=== PATIENT | female | born 1935 | race Caucasian/White ===

== ENCOUNTER 2017-01-14 07:31 | Emergency (ER) | payer MEDICARE, BC ==
--- NOTE | 2017-01-14 08:40 | Emergency Department Record ---
History of Present Illness - General Chief Complaint: Fall Injury Stated Complaint: FALL/HIP PAIN Time Seen by Provider: 01/14/17 07:49 Mode of Arrival: EMS - History of Present Illness Initial Comments: fall at home and she has dementia and EMS called and she was transported for evaluation of right hip pain. MD Complaint: Fall Onset/Timin -: Minutes(s) Fall From: Standing When Fall Occurred: Just prior to arrival Fall Witnessed: No Place Fall Occurred: Home Loss of Consciousness: None Prolonged Down Time?: No Location: Pelvis - [place] Coma Scale Eye Response: (4) Open spontaneously Motor Response: (5) Localizes to pain Verbal Response: (4) Confused conversation [place] Total: 13 - Related Data Home Medications Medication Instructions Recorded Confirmed Last Taken Calcium Citrate/Vitamin D3 1 each PO DAILY 04/24/15 01/14/17 01/13/17 [Calcium Citrate - Vit D Tablet] Multivit-Min/FA/Lycopene/Lut 1 each PO DAILY 04/24/15 01/14/17 01/13/17 [Centrum Silver Tablet] [place]-3/Dha/Epa/Fish Oil [Fish Oil 300 mg PO TID 04/24/15 01/14/17 01/13/17 Dr 500 mg Softgel] Omeprazole [Prilosec] 20 mg PO DAILY 04/24/15 01/14/17 01/13/17 Sotalol HCl [Sotalol] 80 mg PO BID 04/24/15 01/14/17 01/13/17 Valsartan/Hydrochlorothiazide 80 mg PO DAILY 04/13/16 01/14/17 01/13/17 [Valsartan-Hctz 160-25 mg Tab] Previous Rx's Medication Instructions Recorded Levothyroxine Sodium [Synthroid] 100 mcg PO DAILYTHY #30 tablet 04/26/15 Allergies Allergy/AdvReac Type Severity Reaction Status Date / Time No Known Drug Allergies Allergy Verified 12/04/15 08:40 Travel Screening - Travel/Exposure Within Last 30 Days Have you traveled within the last 30 days?: No - Travel/Exposure Within Last Year Have you traveled outside the [place] in the last year?: No - Additonal Travel Details Have you been exposed to anyone with a communicable illness?: No - Travel Symptoms Symptom Screening: None Review of Systems Reviewed: No additional complaints except as noted below Constitutional: Reports: As per HPI. Denies: Chills, Fever, Malaise, Night sweats, Weakness, Weight change Eyes: Reports: As per HPI. Denies: Eye discharge, Eye pain, Photophobia, Vision change ENT: Reports: As per HPI. Denies: Congestion, Dental pain, Ear pain, Epistaxis , Hearing loss, Throat pain Respiratory: Reports: As per HPI. Denies: Cough, Dyspnea, Hemoptysis, Stridor, Wheezes Cardiovascular: Reports: As per HPI. Denies: Arrhythmia, Chest pain, Dyspnea on exertion, Edema, Murmurs, Orthopnea, Palpitations, Paroxysmal nocturnal dyspnea, Rheumatic Fever, Syncope Endocrine: Reports: As per HPI. Denies: Fatigue, Heat or cold intolerance, Polydipsia, Polyuria Gastrointestinal: Reports: As per HPI. Denies: Abdominal pain, Constipation, Diarrhea, Hematemesis, Hematochezia, Melena, Nausea, Vomiting Genitourinary: Reports: As per HPI. Denies: Abnormal menses, Discharge, Dyspareunia, Dysuria, Frequency, Hematuria, Incontinence, Retention, Urgency Musculoskeletal: Reports: As per HPI, Other. Denies: Arthralgia, Back pain, Gout, Joint swelling, Myalgia, Neck pain Skin: Reports: As per HPI. Denies: Bruising, Change in color, Change in hair/ nails, Lesions, Pruritus, Rash Neurological: Reports: As per HPI. Denies: Abnormal gait, Confusion, Headache, Numbness, Paresthesias, Seizure, Tingling, Tremors, Vertigo, Weakness Psychiatric: Reports: As per HPI. Denies: Anxiety, Auditory hallucinations, Depression, Homicidal thoughts, Suicidal thoughts, Visual hallucinations Hematological/Lymphatic: Reports: As per HPI. 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) - NEURO Hx Neuro Disorders: Yes Hx Dementia: Yes Hx Dizziness: Yes - GI Hx GI Disorders: No - Hx Genitourinary Disorders: No - ENDOCRINE Hx Endocrine Disorders: Yes Hx Thyroid Disease: Yes (hypothyroid) - MUSCULOSKELETAL Hx Musculoskeletal Disorders: Yes Hx Arthritis: Yes (Generalized) - PSYCH Hx Psych Problems: Yes Hx Anxiety: Yes Hx Depression: Yes - HEMATOLOGY/ONCOLOGY Hx Hematology/Oncology Disorders: Yes Hx Blood Transfusions: Yes Hx Blood Transfusion Reaction: No Family Medical History Any Significant Family History?: No Hx Diabetes: Father Hx Heart Disease: Father Hx Liver Disease: Mother Physical Exam - General General Appearance: Alert, Oriented x3, Cooperative, No acute distress - Head Head exam: Normal inspection - Eye Eye exam: Normal appearance, PERRL Pupils: Normal accommodation - ENT ENT exam: Normal exam, Mucous membranes moist, Normal external ear exam, Normal orophraynx, TM's normal bilaterally Ear exam: Normal external inspection. negative: External canal tenderness Nasal Exam: Normal inspection. negative: Discharge, Sinus tenderness Mouth exam: Normal external inspection, Tongue normal Teeth exam: Normal inspection. negative: Dental caries Throat exam: Normal inspection. negative: Tonsillar erythema, Tonsillar exudate - Neck Neck exam: Normal inspection, Full ROM. negative: Tenderness - Respiratory Respiratory exam: Normal lung sounds bilaterally. negative: Respiratory distress - Cardiovascular Cardiovascular Exam: Regular rate, Normal rhythm, Normal heart sounds - GI/Abdominal GI/Abdominal exam: Soft, Normal bowel sounds. negative: Tenderness - Rectal Rectal exam: Deferred - exam: Deferred - Extremities Extremities exam: Normal inspection, Full ROM, Normal capillary refill, Tenderness (right hip) - Back Back exam: Reports: Normal inspection, Full ROM. Denies: Muscle spasm, Rash noted, Tenderness - Neurological Neurological exam: Alert, Normal gait, Oriented X3, Reflexes normal - Psychiatric Psychiatric exam: Normal affect, Normal mood - Skin Skin exam: Dry, Intact, Normal color, Warm Course Vital Signs 01/14/17 07:32 Temperature 98.5 F Pulse Rate 63 Respiratory 16 Rate Blood Pressure 155/73 Pulse Ox 99 Medical Decision Making - Data Complexity MDM Data: Labs Ordered and/or Reviewed, X-Ray Ordered and/or Reviewed (neg hip for fractures) - Lab Data Result diagrams: 01/14/17 07:49 01/14/17 07:49 Disposition Clinical Impression: Contusion Qualifiers: Encounter type: initial encounter Contusion area: hip Laterality: right Qualified Code(s): S70.01XA - Contusion of right hip, initial encounter Disposition: Home, Self-Care Condition: (1) Good Instructions: Contusion in Adults (ED) Additional Instructions: follow up with family Dr. in 4-7 days tylenol for pain Forms: Patient Portal Access Time of Disposition: 08:53
[2017-01-14 08:41] LABS: BASO % 0.3 % (0-6); EOS % 3.7 % (0-6); GRAN % 76.9 % (47-80); HEMATOCRIT 41.3 % (35.0-47.0); HEMOGLOBIN 14.9 gm/dl (11.6-16.0); LYMPH % 13.8 % (16-45); MEAN CELL VOLUME 91.8 fl (81-97); MEAN CORPUSCULAR HEMOGLOBIN 33.1 pg (27-33); MEAN CORPUSCULAR HGB CONC 36.1 g/dl (32-36); MEAN PLATELET VOLUME 9.3 fl (7.4-10.4); MONO % 5.3 % (0-9); PLATELET COUNT 252 K/uL (130-400); RED CELL DISTRIBUTION WIDTH 11.9 % (11.5-14.5); WHITE BLOOD COUNT W/O DIFF 7.7 K/uL (4.2-12.2)
[2017-01-14 08:53] LABS: BLOOD UREA NITROGEN 11 mg/dL (7-17); CREATININE 0.6 mg/dL (0.52-1.04); EST GLOMERULAR FILTRATION RATE > 60 ml/min; GLUCOSE,RANDOM 97 mg/dL (70-110)
--- NOTE | 2017-01-16 13:11 | RADIOLOGY REPORT ---
DATE: 01/14/2017. EXAM: AP PORTABLE VIEW OF THE CHEST. HISTORY: The patient is status post fall. TECHNIQUE: Single AP portable view of the chest was provided along with a comparison study dated 04/23/2015. FINDINGS: The cardiac silhouette is within normal limits for size and contour. Post-sternotomy changes are identified. Tortuosity of the thoracic aorta is noted. Significant calcification of the mitral valve is again noted. Pulmonary vasculature prominence is noted. No focal consolidation, pleural effusion, or pneumothorax is noted. IMPRESSION: NO RADIOGRAPHIC EVIDENCE OF AN ACUTE INTRATHORACIC PROCESS. CHRONIC INTERSTITIAL CHANGES ARE IDENTIFIED. JOB NUMBER: [id number] MTDD
--- NOTE | 2017-01-16 13:17 | RADIOLOGY REPORT ---
DATE: 01/14/2017. EXAM: AP VIEW OF THE PELVIS AND TWO VIEWS OF THE RIGHT HIP. HISTORY: The patient is status post fall. TECHNIQUE: AP view of the pelvis and two views of the right hip were provided along with a comparison study dated 04/13/2016. 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 Alignment of the right hip arthroplasty is anatomic. No marco-implant fractures are identified. No marco-hardware lucency is noted to suggest loosening or infection. 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 The visualized soft tissues of the pelvis are unremarkable. IMPRESSION: STABLE RADIOGRAPHIC APPEARANCE OF THE BILATERAL TOTAL HIP ARTHROPLASTIES WITH RESPECT TO THE PRIOR EXAMINATION. JOB NUMBER: [id number] [facility]
== END 2017-01-14 09:30 | disposition home or self-care (01) ==
LOC: ER 07:31
DX: S70.01XA Contusion of right hip, initial encounter (principal); W01.0XXA Fall on same level from slipping, tripping and stumbling without subsequent striking against object, initial encounter; I10 Essential (primary) hypertension; E03.9 Hypothyroidism, unspecified; F03.90 Unspecified dementia, unspecified severity, without behavioral disturbance, psychotic disturbance, mood disturbance, and anxiety; Y92.009 Unspecified place in unspecified non-institutional (private) residence as the place of occurrence of the external cause
CPT/HCPCS: 71010; 80048; 85025; 99283; 99284

== ENCOUNTER 2017-01-17 15:11 | Emergency (ER) | payer MEDICARE, BC ==
--- NOTE | 2017-01-17 15:31 | Emergency Department Record ---
History of Present Illness - General Chief complaint: Female Urogenital Problem Stated complaint: UTI ? Time Seen by Provider: 01/17/17 15:30 Source: Family Mode of Arrival: Wheelchair Limitations: No limitations - History of Present Illness Initial comments: The patient is here for a urine test. She lives at [facility] and per the staff has had dysuria today with cloudy urine. The patient has dementia and is getting rehab there. The hx is obtained from her who states the patient has had no reported AP, vomiting, or fever. She did have a recent fall with residual hip pain. MD Complaint: Dysuria Onset/Timin -: Days(s) Severity: Mild Severity scale (1-10): 2 Quality: Aching Consistency: Intermittent Improves with: None Worsens with: None Patient : No Associated Symptoms: Other - Related Data Sexually active: No Home Medications Medication Instructions Recorded Confirmed Last Taken Calcium Citrate/Vitamin D3 1 each PO DAILY 04/24/15 01/17/17 01/13/17 [Calcium Citrate - Vit D Tablet] Multivit-Min/FA/Lycopene/Lut 1 each PO DAILY 04/24/15 01/17/17 01/13/17 [Centrum Silver Tablet] [place]-3/Dha/Epa/Fish Oil [Fish Oil 300 mg PO TID 04/24/15 01/17/17 01/13/17 Dr 500 mg Softgel] Omeprazole [Prilosec] 20 mg PO DAILY 04/24/15 01/17/17 01/17/17 Sotalol HCl [Sotalol] 80 mg PO BID 04/24/15 01/17/17 01/17/17 Valsartan/Hydrochlorothiazide 80 mg PO DAILY 04/13/16 01/17/17 01/17/17 [Valsartan-Hctz 160-25 mg Tab] Citalopram Hydrobromide 20 mg PO DAILY 01/17/17 01/17/17 01/17/17 [Citalopram HBr] Previous Rx's Medication Instructions Recorded Levothyroxine Sodium [Synthroid] 100 mcg PO DAILYTHY #30 tablet 04/26/15 Nitrofurantoin [place] [Macrobid] 100 mg PO BID #14 capsule 01/17/17 Allergies Allergy/AdvReac Type Severity Reaction Status Date / Time No Known Drug Allergies Allergy Verified 01/17/17 15:30 Travel Screening - Travel/Exposure Within Last 30 Days Have you traveled within the last 30 days?: No Review of Systems Constitutional: Denies: Chills, Fever, Malaise Eyes: Denies: Eye discharge ENT: Denies: Congestion Respiratory: Denies: Cough, Dyspnea Past Medical History - SOCIAL HISTORY Smoking Status: Never smoker Alcohol Use: None Drug Use: None - RESPIRATORY Hx Respiratory Disorders: No - CARDIOVASCULAR Hx Cardio Disorders: Yes Hx Hypertension: Yes 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) - NEURO Hx Neuro Disorders: Yes Hx Dementia: Yes Hx Dizziness: Yes - GI Hx GI Disorders: No - Hx Genitourinary Disorders: No - ENDOCRINE Hx Endocrine Disorders: Yes Hx Thyroid Disease: Yes (hypothyroid) - MUSCULOSKELETAL Hx Musculoskeletal Disorders: Yes Hx Arthritis: Yes (Generalized) - PSYCH Hx Psych Problems: Yes Hx Anxiety: Yes Hx Depression: Yes - HEMATOLOGY/ONCOLOGY Hx Hematology/Oncology Disorders: Yes Hx Blood Transfusions: Yes Hx Blood Transfusion Reaction: No Family Medical History Any Significant Family History?: Yes Hx Diabetes: Father Hx Heart Disease: Father Hx Liver Disease: Mother Physical Exam - General General Appearance: Alert, No acute distress - Head Head exam: Atraumatic, Normocephalic, Normal inspection - Eye Eye exam: Normal appearance, PERRL - Neck Neck exam: Normal inspection, Full ROM. negative: Tenderness - Respiratory Respiratory exam: Normal lung sounds bilaterally. negative: Respiratory distress - Cardiovascular Cardiovascular Exam: Regular rate, Normal rhythm, Normal heart sounds - GI/Abdominal GI/Abdominal exam: Soft, Normal bowel sounds. negative: Distended, Hypoactive bowel sounds, Tenderness - Extremities Extremities exam: Normal inspection Course Vital Signs 01/17/17 15:27 Temperature 97.6 F Pulse Rate 74 Respiratory 24 Rate Blood Pressure 148/75 Pulse Ox 97 - Reevaluation(s) Reevaluation #1: I did explain to the that it does appear the patient has a UTI. We will place her on Macrobid and have her F/U with the doctor at [facility] next week. 01/17/17 15:49 Disposition Disposition: Discharge Clinical Impression: Urinary Tract Infection Qualifiers: Urinary tract infection type: acute cystitis Hematuria presence: without hematuria Qualified Code(s): N30.00 - Acute cystitis without hematuria Disposition: Home, Self-Care Condition: (2) Stable Instructions: Urinary Tract Infection in Women (ED) Additional Instructions: Please give the Macrobid as directed. Please see your PCP at [facility] if not better in 3 days. Return to the ER if worse. Prescriptions: Nitrofurantoin [place] [Macrobid] 100 mg PO BID #14 capsule Forms: Patient Portal Access Time of Disposition: 15:51
[2017-01-17 15:35] LABS: URINE APPEARANCE CLEAR; URINE BILIRUBIN NEGATIVE (NEGATIVE); URINE BLOOD TRACE-I (NEGATIVE); URINE COLOR YELLOW; URINE GLUCOSE (UA) NEGATIVE (NEGATIVE); URINE KETONE NEGATIVE (NEGATIVE); URINE LEUKOCYTE ESTERASE NEGATIVE (NEGATIVE); URINE NITRITE NEGATIVE (NEGATIVE); URINE UROBILINOGEN 0.2 E.U./dL (0.20 - 1.00)
[2017-01-17 15:47] LABS: URINE BACTERIA 4+; URINE WBC 21 - 35 (0-2/hpf)
== END 2017-01-17 16:06 | disposition home or self-care (01) ==
LOC: ER 15:11
DX: N30.00 Acute cystitis without hematuria (principal)
CPT/HCPCS: 81001; 99282

== ENCOUNTER 2017-02-06 18:21 | Inpatient (IN) | payer MEDICARE, BC ==
--- NOTE | 2017-02-06 18:43 | Emergency Department Record ---
History of Present Illness - General Chief Complaint: Fall Injury Stated Complaint: FALL Time Seen by Provider: 02/06/17 18:36 Source: Patient, Family, EMS Mode of Arrival: Stretcher - History of Present Illness Initial Comments: Per patient's , the patient fell prior to arrival while trying to ambulate at home with her walker. She hit the side of a piece of furniture with her right side of her head and fell to the ground. She did not lose consciousness . She has dementia and atrial fibrillation. Four weeks ago she fell and injured her hip. She went to rehab at a local facility and then returned home 02-03-17, with her doing full care at home for her. He states that this arrangement is not working for him and their PCP Dr. Gonsalez is working on arranging half-way placement for her. He states her mental state is currently at baseline for her": alert, doesn't answer questions or speak. 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 Place Fall Occurred: Home Loss of Consciousness: None Associated Symptoms: Other - [place] Coma Scale Eye Response: (4) Open spontaneously Motor Response: (6) Obeys commands Verbal Response: (4) Confused conversation [place] Total: 14 - Related Data Home Medications Medication Instructions Recorded Confirmed Last Taken Calcium Citrate/Vitamin D3 1 each PO DAILY 04/24/15 02/06/17 02/06/17 [Calcium Citrate - Vit D Tablet] Multivit-Min/FA/Lycopene/Lut 1 each PO DAILY 04/24/15 02/06/17 02/06/17 [Centrum Silver Tablet] [place]-3/Dha/Epa/Fish Oil [Fish Oil 300 mg PO TID 04/24/15 02/06/17 02/06/17 Dr 500 mg Softgel] Omeprazole [Prilosec] 20 mg PO DAILY 04/24/15 02/06/17 02/06/17 Sotalol HCl [Sotalol] 80 mg PO BID 04/24/15 02/06/17 02/06/17 Valsartan/Hydrochlorothiazide 80 mg PO DAILY 04/13/16 02/06/17 02/06/17 [Valsartan-Hctz 160-25 mg Tab] Citalopram Hydrobromide 20 mg PO DAILY 01/17/17 02/06/17 02/06/17 [Citalopram HBr] Previous Rx's Medication Instructions Recorded Levothyroxine Sodium [Synthroid] 100 mcg PO DAILYTHY #30 tablet 04/26/15 Allergies Allergy/AdvReac Type Severity Reaction Status Date / Time No Known Drug Allergies Allergy Verified 01/17/17 15:30 Travel Screening - Travel/Exposure Within Last 30 Days Have you traveled within the last 30 days?: No - Travel/Exposure Within Last Year Have you traveled outside the [place] in the last year?: No - Additonal Travel Details Have you been exposed to anyone with a communicable illness?: No - Travel Symptoms Symptom Screening: None Review of Systems Reviewed: No additional complaints except as noted below Constitutional: Reports: As per HPI. Denies: Chills, Fever, Malaise, Night sweats, Weakness, Weight change Eyes: Reports: As per HPI. Denies: Eye discharge, Eye pain, Photophobia, Vision change ENT: Reports: As per HPI. Denies: Congestion, Dental pain, Ear pain, Epistaxis , Hearing loss, Throat pain Respiratory: Reports: As per HPI. Denies: Cough, Dyspnea, Hemoptysis, Stridor, Wheezes Cardiovascular: Reports: As per HPI. Denies: Arrhythmia, Chest pain, Dyspnea on exertion, Edema, Murmurs, Orthopnea, Palpitations, Paroxysmal nocturnal dyspnea, Rheumatic Fever, Syncope Endocrine: Reports: As per HPI. Denies: Fatigue, Heat or cold intolerance, Polydipsia, Polyuria Gastrointestinal: Reports: As per HPI. Denies: Abdominal pain, Constipation, Diarrhea, Hematemesis, Hematochezia, Melena, Nausea, Vomiting Genitourinary: Reports: As per HPI. Denies: Abnormal menses, Discharge, Dyspareunia, Dysuria, Frequency, Hematuria, Incontinence, Retention, Urgency Musculoskeletal: Reports: As per HPI. Denies: Arthralgia, Back pain, Gout, Joint swelling, Myalgia, Neck pain Skin: Reports: As per HPI. Denies: Bruising, Change in color, Change in hair/ nails, Lesions, Pruritus, Rash Neurological: Reports: As per HPI. Denies: Abnormal gait, Confusion, Headache, Numbness, Paresthesias, Seizure, Tingling, Tremors, Vertigo, Weakness Psychiatric: Reports: As per HPI. Denies: Anxiety, Auditory hallucinations, Depression, Homicidal thoughts, Suicidal thoughts, Visual hallucinations Hematological/Lymphatic: Reports: As per HPI. 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) - NEURO Hx Neuro Disorders: Yes Hx Dementia: Yes Hx Dizziness: Yes - GI Hx GI Disorders: No - Hx Genitourinary Disorders: No - ENDOCRINE Hx Endocrine Disorders: Yes Hx Thyroid Disease: Yes (hypothyroid) - MUSCULOSKELETAL Hx Musculoskeletal Disorders: Yes Hx Arthritis: Yes (Generalized) - PSYCH Hx Psych Problems: Yes Hx Anxiety: Yes Hx Depression: Yes - HEMATOLOGY/ONCOLOGY Hx Hematology/Oncology Disorders: Yes Hx Blood Transfusions: Yes Hx Blood Transfusion Reaction: No Family Medical History Any Significant Family History?: No Hx Diabetes: Father Hx Heart Disease: Father Hx Liver Disease: Mother Physical Exam - General General Appearance: Alert, No acute distress Limitations: Altered mental status (chronically demented) - Head Head exam: Normal inspection - Eye Eye exam: Normal appearance, PERRL Pupils: Normal accommodation - ENT ENT exam: Normal exam, Mucous membranes moist, Normal external ear exam, Normal orophraynx, TM's normal bilaterally Ear exam: Normal external inspection. negative: External canal tenderness Nasal Exam: Normal inspection. negative: Discharge, Sinus tenderness Mouth exam: Normal external inspection, Tongue normal Teeth exam: Normal inspection. negative: Dental caries Throat exam: Normal inspection. negative: Tonsillar erythema, Tonsillar exudate - Neck Neck exam: Normal inspection, Full ROM, Other (arrived with C collar in place). negative: Tenderness - Respiratory Respiratory exam: Normal lung sounds bilaterally. negative: Respiratory distress - Cardiovascular Cardiovascular Exam: Regular rate, Normal rhythm, Normal heart sounds - GI/Abdominal GI/Abdominal exam: Soft, Normal bowel sounds. negative: Tenderness - Rectal Rectal exam: Deferred - exam: Deferred - Extremities Extremities exam: Normal inspection, Full ROM, Normal capillary refill. negative: Tenderness - Back Back exam: Reports: Normal inspection, Full ROM. Denies: Muscle spasm, Rash noted, Tenderness - Neurological Neurological exam: Alert, CN II-XII intact, Reflexes normal, Other (nonverbal) - Psychiatric Psychiatric exam: Normal affect, Normal mood - Skin Skin exam: Dry, Intact, Normal color, Warm Course Vital Signs 02/06/17 18:25 Temperature 98.1 F Pulse Rate 74 Respiratory 16 Rate Blood Pressure 108/66 Pulse Ox 96 - Reevaluation(s) Reevaluation #1: Paged Dr. Gonsalez three times with no response. Family wishes her admitted here. They state she soon has a bed waiting for her at [facility]. 02/06/17 22:02 Reevaluation #2: Patient continues to be cooperative and affectionate awaiting admission. Family at bedside. Orders in progress. 02/06/17 22:08 Medical Decision Making - Management Options MDM Management: Additional Work-up Planned (e.g. ADM/Transfer/OP Study) (Admit to Dr. Mari service) - Data Complexity MDM Data: Labs Ordered and/or Reviewed, X-Ray Ordered and/or Reviewed (Head and C spine noncontrast CTs: no acute abnormalities, chronic changes. Pelvis: bilaterahip replacements; right inferior pubic ramus fracture.), EKG Ordered and /or Reviewed - Lab Data Result diagrams: 02/06/17 18:57 02/06/17 18:57 - EKG Data -: EKG Interpreted by Me EKG: No Acute Changes, Unchanged From Previous (prior of 07-18-16) Disposition Disposition: Admit Clinical Impression: Fall as cause of accidental injury at home as place of occurrence, Hyponatremia , Electrolyte imbalance Inferior pubic ramus fracture Qualifiers: Encounter type: initial encounter Fracture type: closed Laterality: right Qualified Code(s): S32.591A - Other specified fracture of right pubis, initial encounter for closed fracture Dementia Qualifiers: Dementia type: unspecified type Dementia behavioral disturbance: without behavioral disturbance Qualified Code(s): F03.90 - Unspecified dementia without behavioral disturbance Disposition: Still a Patient at [facility] Decision to Admit: Admit from ER Decision to Admit Date: 02/06/17 Decision to Admit Time: 22:07 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
[2017-02-06 19:06] LABS: BASO % 0.3 % (0-6); EOS % 1.2 % (0-6); GRAN % 66.6 % (47-80); HEMATOCRIT 37.4 % (35.0-47.0); HEMOGLOBIN 13.6 gm/dl (11.6-16.0); MEAN CELL VOLUME 89.9 fl (81-97); MEAN CORPUSCULAR HEMOGLOBIN 32.7 pg (27-33); MEAN CORPUSCULAR HGB CONC 36.4 g/dl (32-36); MEAN PLATELET VOLUME 8.9 fl (7.4-10.4); MONO % 9.9 % (0-9); PLATELET COUNT 486 K/uL (130-400); RED BLOOD COUNT 4.16 M/uL (3.80-5.40); RED CELL DISTRIBUTION WIDTH 12.3 % (11.5-14.5); WHITE BLOOD COUNT W/O DIFF 9.2 K/uL (4.2-12.2)
[2017-02-06 19:21] LABS: AMMONIA < 8.7 umol/L (9-30)
[2017-02-06 19:22] LABS: INR 1.03; PARTIAL THROMBOPLASTIN TIME 24.6 SECONDS (24.5-39.1); PROTHROMBIN TIME (PATIENT) 11.6 SECONDS (9.5-12.1)
[2017-02-06 19:23] LABS: ALBUMIN 3.6 gm/dL (3.5-5.0); BILIRUBIN,DIRECT 0.9 mg/dL (0-0.3); BLOOD UREA NITROGEN 25 mg/dL (7-17); CREATININE 0.7 mg/dL (0.52-1.04); EST GLOMERULAR FILTRATION RATE > 60 ml/min; GLUCOSE,RANDOM 108 mg/dL (70-110); TOTAL PROTEIN 6.7 gm/dL (6.3-8.2)
[2017-02-06 19:24] LABS: ALKALINE PHOSPHATASE 161 U/L (38-126); ALT/SGPT 38 U/L (9-52); AST/SGOT 26 U/L (14-36)
[2017-02-06] MEDS ORDERED: POTASSIUM CHLORIDE 20 MEQ TABLET PO ONE (20:25)
[2017-02-06 20:54] LABS: URINE APPEARANCE CLEAR; URINE BILIRUBIN NEGATIVE (NEGATIVE); URINE BLOOD NEGATIVE (NEGATIVE); URINE COLOR YELLOW; URINE GLUCOSE (UA) NEGATIVE (NEGATIVE); URINE KETONE 15 mg/dL (NEGATIVE); URINE LEUKOCYTE ESTERASE NEGATIVE (NEGATIVE); URINE NITRITE NEGATIVE (NEGATIVE); URINE PROTEIN TRACE (NEGATIVE)
[2017-02-06 21:59] LABS: AMPHETAMINE SCREEN URINE NOT DETECTED; BARBITURATE SCREEN URINE NOT DETECTED; BENZODIAZEPINE SCREEN URINE NOT DETECTED; COCAINE SCREEN URINE NOT DETECTED; METHADONE SCREEN URINE NOT DETECTED; METHAMPHETAMINE SCREEN NOT DETECTED; OPIATE SCREEN URINE NOT DETECTED; OXYCODONE SCREEN URINE NOT DETECTED; PHENCYCLIDINE SCREEN URINE NOT DETECTED; PROPOXYPHENE SCREEN URINE NOT DETECTED; THC SCREEN URINE NOT DETECTED; TRICYCLIC ANTIDEPRESSANT SCRN NOT DETECTED
[2017-02-06] MEDS ORDERED: AL HYDROX/MAG HYDROX 30ML UD PO PRN (23:11)
[2017-02-06] MEDS ORDERED: ACETAMINOPHEN 500 MG TABLET PO PRN (23:11)
[2017-02-07] MEDS ORDERED: ZINC OXIDE 28.35 GM TUBE TOP PRN (06:52)
[2017-02-07] MEDS ORDERED: LEVOTHYROXINE SODIUM 100 MCG TABLET PO SCH (07:00)
--- NOTE | 2017-02-07 09:32 | History & Physical ---
History of Present Illness - Date of Service Date of Service for History & Physical: 02/07/17 - History of Present Illness Admitting Diagnosis: Fall; inferior ramus fracture; dementia; electrolyte imbalance; intermittent a. fib History of Present Illness: 81 y/o demented female with CC fall admitted for right inferior ramus fracture, hyponatremia. PMX includes: dementia, a-fib, HTN, hypothyroidism, arthritis PSH: septomyectomy History given by - Patient mental status is at baseline, she is alert but non-verbal. Prior to admit patient fell at home while trying to ambulate with walker. Hit the side of a piece of furniture with the right side of her head and fell. Denies any LOC. Believes she lost her balance. Four weeks ago she fell and injured her right hip, no fracture, and subsequently went to a local rehab center for therapy and respite and returned home 02/03/17. has been her primary care consultant. reports his current role as primary caregiver has been increasingly difficult to manage and has been working on arranging halfway care placement for her for 01/06 care. He reports her current mental state is at baseline for her. While in the ED VS: T 98.1, P 74, BP108/66, RR 16, SPO2 96% RA. WBC 9.2, Plt 486 , Na 128, K 3.1, alk phos 161, tox screen negative, EKG NSR, RBBB, LAFB, LVH. Cervical CT negative for acute fracture, hip and pelvis x-ray + right pubic ramus fx, head CT negative for acute process, CXR negative for acute process 02/07- observed ambulating from BR with walker, wincing and whimpering. Is non- verbal. at bedside. Per 's report she ambulates independently with walker at home with little assist, requires 24/7 assist with ADL and food prep/medication management due to cognitive impairment. Was diagnosed with dementia about 4 years ago. states she has been accepted as a patient at [facility] and was planning on admission to the facility on Thursday. PCP Dr. Gonsalez Travel Screening - Travel/Exposure Within Last 30 Days Have you traveled within the last 30 days?: No - Travel/Exposure Within Last Year Have you traveled outside the [place] in the last year?: No - Additonal Travel Details Have you been exposed to anyone with a communicable illness?: No - Travel Symptoms Symptom Screening: None Review of Systems Constitutional: Reports: As per HPI. Denies: Chills, Fever, Malaise, Night sweats, Weakness, Weight change Eyes: Reports: As per HPI. Denies: Eye discharge, Eye pain, Photophobia, Vision change ENT: Reports: As per HPI. Denies: Congestion, Dental pain, Ear pain, Epistaxis , Hearing loss, Throat pain Respiratory: Reports: As per HPI. Denies: Cough, Dyspnea, Hemoptysis, Stridor, Wheezes Cardiovascular: Reports: As per HPI. Denies: Arrhythmia, Chest pain, Dyspnea on exertion, Edema, Murmurs, Orthopnea, Palpitations, Paroxysmal nocturnal dyspnea, Rheumatic Fever, Syncope Endocrine: Reports: As per HPI. Denies: Fatigue, Heat or cold intolerance, Polydipsia, Polyuria Gastrointestinal: Reports: As per HPI. Denies: Abdominal pain, Constipation, Diarrhea, Hematemesis, Hematochezia, Melena, Nausea, Vomiting Genitourinary: Reports: As per HPI. Denies: Abnormal menses, Discharge, Dyspareunia, Dysuria, Frequency, Hematuria, Incontinence, Retention, Urgency Musculoskeletal: Reports: As per HPI. Denies: Arthralgia, Back pain, Gout, Joint swelling, Myalgia, Neck pain Skin: Reports: As per HPI. Denies: Bruising, Change in color, Change in hair/ nails, Lesions, Pruritus, Rash Neurological: Reports: As per HPI. Denies: Abnormal gait, Confusion, Headache, Numbness, Paresthesias, Seizure, Tingling, Tremors, Vertigo, Weakness Psychiatric: Reports: As per HPI. Denies: Anxiety, Auditory hallucinations, Depression, Homicidal thoughts, Suicidal thoughts, Visual hallucinations Hematological/Lymphatic: Reports: As per HPI. 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) - NEURO Hx Neuro Disorders: Yes Hx Dementia: Yes Hx Dizziness: Yes - GI Hx GI Disorders: No - Hx Genitourinary Disorders: No Comment:: incontinent of bowel and bladder - ENDOCRINE Hx Endocrine Disorders: Yes Hx Thyroid Disease: Yes (hypothyroid) - MUSCULOSKELETAL Hx Musculoskeletal Disorders: Yes Hx Arthritis: Yes (Generalized) - PSYCH Hx Psych Problems: Yes Hx Anxiety: Yes Hx Depression: Yes - HEMATOLOGY/ONCOLOGY Hx Hematology/Oncology Disorders: Yes Hx Blood Transfusions: Yes Hx Blood Transfusion Reaction: No Family Medical History Any Significant Family History?: No Hx Diabetes: Father Hx Heart Disease: Father Hx Liver Disease: Mother H&P Meds/Allergies - Allergies Allergies: Allergies Allergy/AdvReac Type Severity Reaction Status Date / Time No Known Drug Allergies Allergy Verified 01/17/17 15:30 - Home Medications Home Medications Medication Instructions Recorded Confirmed Last Taken Calcium Citrate/Vitamin D3 1 each PO DAILY 04/24/15 02/06/17 02/06/17 [Calcium Citrate - Vit D Tablet] Multivit-Min/FA/Lycopene/Lut 1 each PO DAILY 04/24/15 02/06/17 02/06/17 [Centrum Silver Tablet] [place]-3/Dha/Epa/Fish Oil [Fish Oil 300 mg PO TID 04/24/15 02/06/17 02/06/17 Dr 500 mg Softgel] Omeprazole [Prilosec] 20 mg PO DAILY 04/24/15 02/06/17 02/06/17 Sotalol HCl [Sotalol] 80 mg PO BID 04/24/15 02/06/17 02/06/17 Citalopram Hydrobromide 20 mg PO DAILY 01/17/17 02/06/17 02/06/17 [Citalopram HBr] Valsartan [Valsartan] 80 mg PO DAILY 02/07/17 02/07/17 Unknown Previous Rx's Medication Instructions Recorded Levothyroxine Sodium [Synthroid] 100 mcg PO DAILYTHY #30 tablet 04/26/15 - Active Medications Active Medications: Current Medications Acetaminophen (Tylenol 500mg Tab) 500 mg PO Q6H PRN PRN Reason: PAIN/TEMP Al Hydroxide/Mg Hydroxide (Maalox) 30 ml PO Q4H PRN PRN Reason: GI UPSET Citalopram Hydrobromide (Celexa) 20 mg PO DAILY ALL Levothyroxine Sodium (Synthroid) 100 mcg PO DAILYTHY ALL Last Admin: 02/07/17 06:37 Dose: 100 mcg Non-Formulary Medication (Calcium Citrate/Vitamin D3 [Calcium Citrate - Vit D Tablet]) 1 each PO DAILY ALL Non-Formulary Medication (Multivit-Min/Fa/Lycopene/Lut [Centrum Silver Tablet]) 1 each PO DAILY ALL Non-Formulary Medication ([place]-3/Dha/Epa/Fish Oil [Fish Oil Dr 500 Mg Softgel] ) 300 mg PO TID ALL Non-Formulary Medication (Omeprazole [Prilosec]) 20 mg PO DAILY ALL Non-Formulary Medication (Valsartan/Hydrochlorothiazide [Valsartan-Hctz 160-25 Mg Tab]) 80 mg PO DAILY ALL Sotalol HCl (Betapace) 80 mg PO BID ALL Zinc Oxide (Desitin) 28.35 gm TOP BID PRN PRN Reason: RASH Last Admin: 02/07/17 06:45 Dose: 28.35 gm Physical Exam - Vital Signs Vital Signs: Vital Signs - Last 24 Hrs Temp Pulse Resp BP BP Pulse Ox 02/07/17 08:03 98.2 F 73 18 101/54 96 02/07/17 07:56 20 02/07/17 00:04 97.7 F 66 20 108/66 97 - General General Appearance: Alert, No acute distress Limitations: Altered mental status (chronically demented) - Head Head exam: Normal inspection - Eye Eye exam: Normal appearance, PERRL Pupils: Normal accommodation - ENT ENT exam: Normal exam, Mucous membranes moist, Normal external ear exam, Normal orophraynx, TM's normal bilaterally Ear exam: Normal external inspection. negative: External canal tenderness Nasal Exam: Normal inspection. negative: Discharge, Sinus tenderness Mouth exam: Normal external inspection, Tongue normal Teeth exam: Normal inspection. negative: Dental caries Throat exam: Normal inspection. negative: Tonsillar erythema, Tonsillar exudate - Neck Neck exam: Normal inspection, Full ROM, Other (arrived with C collar in place). negative: Tenderness - Respiratory Respiratory exam: Normal lung sounds bilaterally. negative: Respiratory distress - Cardiovascular Cardiovascular Exam: Regular rate, Normal rhythm, Normal heart sounds, Systolic murmur Peripheral Pulses: 3+: Dorsalis Pedis (R), Dorsalis Pedis (L) - GI/Abdominal GI/Abdominal exam: Soft, Normal bowel sounds. negative: Tenderness - Rectal Rectal exam: Deferred - exam: Deferred - Extremities Extremities exam: Normal inspection (no leg length discrepency), Full ROM, Normal capillary refill, Other. negative: Tenderness - Back Back exam: Reports: Normal inspection, Full ROM. Denies: Muscle spasm, Rash noted, Tenderness - Neurological Neurological exam: Alert, CN II-XII intact, Reflexes normal, Other (nonverbal. Sensation grossly intact BLE) - Psychiatric Psychiatric exam: Normal affect, Normal mood - Skin Skin exam: Dry, Intact, Normal color, Warm Results - Labs Result Diagrams: 02/06/17 18:57 02/06/17 18:57 - Imaging and Cardiology CT scan - head Status: Report reviewed (No acute process) VTE H&P Assessment - Risk for VTE Risk for VTE: Yes Risk Level: Moderate Risk Assessment Date: 02/07/17 Risk Assessment Time: 12:00 VTE Orders Placed or Will Be Placed: Yes Plan - Inpatient Certification Inpatient Certification: Admit to inpatient care: Based on my medical assessment, after consideration of patient's risk factors (age, co-morbidities and patient presenting symptoms and acuity), I expect that this patient will remain in the hospital greater than or equal to two midnights and that the services needed warrant inpatient care because: Patient Risk Factors: [pubic ramus fracture, advanced age, dementia] Estimated length of stay: [72-96 hours] The patient may reasonably be expected to be discharged or transferred to a hospital within 96 hours after admission to [facility]. Services needed: [pain management, lab monitoring] Post hospital care (if known): [] I certify that my determination is in accordance with my understanding of Medicare requirements for reasonable and necessary inpatient services. 02/07/17 20:18 - Detailed Diagnosis and Plan (1) Inferior pubic ramus fracture Current Visit: Yes Status: Acute Qualifiers: Encounter type: initial encounter Fracture type: closed Laterality : right Qualified Code(s): S32.591A - Other specified fracture of right pubis, initial encounter for closed fracture Base Code: S32.599A - OTH FRACTURE OF UNSP PUBIS, INIT ENCNTR FOR CLOSED FRACTURE Comment: 02/07- admitted for right inferior pubic ramus fracture after fall at home. Fracture closed, non-displaced - reports any use of narcotic pain mediations "knocks her out" - pain control with Tylenol ES 2 tabs Q 8 hours - encourage ambulation - [facility] contacted today, will be transfering directly there at discharge (2) Electrolyte imbalance Current Visit: Yes Status: Acute Base Code: E87.8 - OTH DISORDERS OF ELECTROLYTE AND FLUID BALANCE, NEC Comment: 02/07- Hyponatremia noted on admission labs. Na 128. - initiate 1800ml/24 hour fluid restriction - CMP in the am (3) Adult hypothyroidism Current Visit: Yes Status: Acute Base Code: E03.9 - HYPOTHYROIDISM, UNSPECIFIED Comment: 02/07- Hx chronic hypothyroidism. TSH today 11.06 - increase synthroid to 125mcg QD, will need recheck in 6 weeks (4) DVT prophylaxis Current Visit: Yes Status: Acute Base Code: [id number] - Comment: 02/07- moderate risk DVT 2nd advanced age and pubic ramus fracture. Will encourage frequent ambulation. Anticoagulation not advised as she is a high fall risk. (5) Full code status Current Visit: Yes Status: Acute Base Code: Z78.9 - OTHER SPECIFIED HEALTH STATUS Comment: 02/07- will remain full code during this hospitalization
[2017-02-07] MEDS: PANTOPRAZOLE SODIUM 40 MG TABLET PO SCH (10:31)
[2017-02-07] MEDS: CITALOPRAM 20 MG TABLET PO SCH (10:31)
[2017-02-07] MEDS: MULTIVITAMINS/MINERALS TABLET PO SCH (10:31)
[2017-02-07] MEDS: CALCIUM CARB/VITAMIN D 500MG/200IU PO SCH (10:31)
[2017-02-07] MEDS: SOTALOL HCL 80 MG TABLET PO SCH ×2 (10:38→23:18)
[2017-02-07] MEDS: EPA PO SCH ×3 (10:39→23:23)
[2017-02-07] MEDS: DHA PO SCH ×3 (10:39→23:23)
[2017-02-07] MEDS: OMEGA PO SCH ×3 (10:39→23:23)
[2017-02-07] MEDS: FISH OIL PO SCH ×3 (10:39→23:23)
[2017-02-07] MEDS: VALSARTAN 80 MG TAB PO SCH (10:39)
[2017-02-07] MEDS: ACETAMINOPHEN 500 MG TABLET PO SCH ×2 (12:18→23:18)
[2017-02-08 06:30] LABS: ALB/GLOB RATIO 1.2 (1.1-1.8); ALBUMIN 3.5 gm/dL (3.5-5.0); ALKALINE PHOSPHATASE 125 U/L (38-126); ALT/SGPT 36 U/L (9-52); ANION GAP 5.8 (7-16); AST/SGOT 23 U/L (14-36); BILIRUBIN,TOTAL 0.98 mg/dL (0.2-1.3); BLOOD UREA NITROGEN 20 mg/dL (7-17); CARBON DIOXIDE 31.2 mmol/L (22-30); CREATININE 0.6 mg/dL (0.52-1.04); EST GLOMERULAR FILTRATION RATE > 60 ml/min; GLUCOSE,RANDOM 99 mg/dL (70-110); TOTAL PROTEIN 6.4 gm/dL (6.3-8.2)
[2017-02-08] MEDS: ACETAMINOPHEN 500 MG TABLET PO SCH ×3 (06:34→22:03)
[2017-02-08] MEDS: PANTOPRAZOLE SODIUM 40 MG TABLET PO SCH (06:35)
[2017-02-08] MEDS ORDERED: LEVOTHYROXINE SODIUM 100 MCG TABLET PO SCH (07:00)
[2017-02-08] MEDS: MULTIVITAMINS/MINERALS TABLET PO SCH (09:57)
[2017-02-08] MEDS: VALSARTAN 80 MG TAB PO SCH (09:57)
[2017-02-08] MEDS: CALCIUM CARB/VITAMIN D 500MG/200IU PO SCH (09:58)
[2017-02-08] MEDS: CITALOPRAM 20 MG TABLET PO SCH (09:58)
[2017-02-08] MEDS: SOTALOL HCL 80 MG TABLET PO SCH ×2 (09:58→22:04)
[2017-02-08] MEDS: OMEGA PO SCH (10:08)
[2017-02-08] MEDS: EPA PO SCH (10:08)
[2017-02-08] MEDS: FISH OIL PO SCH (10:08)
[2017-02-08] MEDS: DHA PO SCH (10:08)
--- NOTE | 2017-02-08 18:24 | Physician Progress Note ---
Subjective - Date Date of Physician Progress Note: 02/08/17 - Subjective Subjective Comment: Laying comfortably in the bed. Patient has dementia, is non-verbal. Per nursing report is wincing and whimpering less with ambulation. reports she seems more alert than she has in the last several days. Sleeping less. Objective - Vital Signs Vital Signs: Vital Signs - Last 24 Hrs Temp Pulse Resp BP Pulse Ox 02/08/17 08:17 16 02/08/17 08:00 98.7 F 72 16 121/68 97 02/08/17 00:00 98.7 F 63 18 126/65 96 - General General Appearance: Alert, No acute distress Limitations: Altered mental status (chronically demented) - Head Head exam: Normal inspection - Eye Eye exam: Normal appearance, PERRL Pupils: Normal accommodation - ENT ENT exam: Normal exam, Mucous membranes moist, Normal external ear exam, Normal orophraynx, TM's normal bilaterally Ear exam: Normal external inspection. negative: External canal tenderness Nasal Exam: Normal inspection. negative: Discharge, Sinus tenderness Mouth exam: Normal external inspection, Tongue normal Teeth exam: Normal inspection. negative: Dental caries Throat exam: Normal inspection. negative: Tonsillar erythema, Tonsillar exudate - Neck Neck exam: Normal inspection, Full ROM, Other (arrived with C collar in place). negative: Tenderness - Respiratory Respiratory exam: Normal lung sounds bilaterally. negative: Respiratory distress - Cardiovascular Cardiovascular Exam: Regular rate, Normal rhythm, Normal heart sounds, Systolic murmur Peripheral Pulses: 3+: Dorsalis Pedis (R), Dorsalis Pedis (L) - GI/Abdominal GI/Abdominal exam: Soft, Normal bowel sounds. negative: Tenderness - Rectal Rectal exam: Deferred - exam: Deferred - Extremities Extremities exam: Normal inspection (no leg length discrepency), Full ROM, Normal capillary refill, Other. negative: Tenderness - Back Back exam: Reports: Normal inspection, Full ROM. Denies: Muscle spasm, Rash noted, Tenderness - Neurological Neurological exam: Alert, CN II-XII intact, Reflexes normal, Other (nonverbal. Sensation grossly intact BLE) - Psychiatric Psychiatric exam: Normal affect, Normal mood - Skin Skin exam: Dry, Intact, Normal color, Warm Assessment and Plan - Assessment and Plan (1) Inferior pubic ramus fracture Current Visit: Yes Status: Acute Qualifiers: Encounter type: initial encounter Fracture type: closed Laterality : right Qualified Code(s): S32.591A - Other specified fracture of right pubis, initial encounter for closed fracture Base Code: S32.599A - OTH FRACTURE OF UNSP PUBIS, INIT ENCNTR FOR CLOSED FRACTURE Comment: 02/08- admitted for right inferior pubic ramus fracture after fall at home. Fracture closed, non-displaced - reports any use of narcotic pain mediations "knocks her out" - pain control with Tylenol ES 2 tabs Q 8 hours, appears less painful today with ambulation - continue to encourage ambulation - stable for discharge - will benefit from PT/OT 2nd deconditioning and encourage highest level of independence - Anticipate discharge to [facility] tomorrow. Case Management to meet with patient and in the morning (2) Electrolyte imbalance Current Visit: Yes Status: Acute Base Code: E87.8 - OTH DISORDERS OF ELECTROLYTE AND FLUID BALANCE, NEC Comment: 02/08- Hyponatremia noted on admission labs. Na 128->132 after initiating fluid restriction. - continue 1800ml/24 hour fluid restriction - CMP in the am (3) Adult hypothyroidism Current Visit: Yes Status: Acute Base Code: E03.9 - HYPOTHYROIDISM, UNSPECIFIED Comment: 02/08- Hx chronic hypothyroidism. TSH today 11.06 - increase synthroid to 125mcg QD, will need recheck in 6 weeks (4) DVT prophylaxis Current Visit: Yes Status: Acute Base Code: [id number] - Comment: 02/08- moderate risk DVT 2nd advanced age and pubic ramus fracture. Will encourage frequent ambulation. Anticoagulation not advised as she is a high fall risk. (5) Full code status Current Visit: Yes Status: Acute Base Code: Z78.9 - OTHER SPECIFIED HEALTH STATUS Comment: 02/08- will remain full code during this hospitalization Results - Labs Result Diagrams: 02/06/17 18:57 02/08/17 05:50 Labs Last 24 Hours: Laboratory Results - last 24 hr 02/08/17 05:50 Sodium 132 L Potassium 3.7 Chloride 95 L Carbon Dioxide 31.2 H Anion Gap 5.8 L BUN 20 H Creatinine 0.6 Estimated GFR > 60 Random Glucose 99 Calcium 8.7 Total Bilirubin 0.98 AST 23 ALT 36 Alkaline Phosphatase 125 Total Protein 6.4 Albumin 3.5 Globulin 2.9 Albumin/Globulin Ratio 1.2 DVT/PE Assessment - Risk for VTE Risk for VTE: No Risk Level: Moderate Risk Assessment Date: 02/07/17 Risk Assessment Time: 12:00 VTE Orders Placed or Will Be Placed: Yes - Active Medicaitons Current Medications: Current Medications Acetaminophen (Tylenol 500mg Tab) 1,000 mg PO Q8H [facility] Last Admin: 02/08/17 12:09 Dose: 1,000 mg Al Hydroxide/Mg Hydroxide (Maalox) 30 ml PO Q4H PRN PRN Reason: GI UPSET Calcium/Vitamin D (Calcium 500+D Tablet) 1 tab PO DAILY [facility] Last Admin: 02/08/17 09:58 Dose: 1 tab Citalopram Hydrobromide (Celexa) 20 mg PO DAILY [facility] Last Admin: 02/08/17 09:58 Dose: 20 mg Levothyroxine Sodium (Synthroid) 125 mcg PO DAILYTHY [facility] Multivitamins/Minerals (Centrum) 1 tab PO DAILY [facility] Last Admin: 02/08/17 09:57 Dose: 1 tab Pantoprazole Sodium (Protonix) 40 mg PO DAILYAC [facility] Last Admin: 02/08/17 06:35 Dose: 40 mg Sotalol HCl (Betapace) 80 mg PO BID [facility] Last Admin: 02/08/17 09:58 Dose: 80 mg Valsartan (Diovan) 80 mg PO DAILY [facility] Last Admin: 02/08/17 09:57 Dose: 80 mg Zinc Oxide (Desitin) 28.35 gm TOP BID PRN PRN Reason: RASH Last Admin: 02/07/17 06:45 Dose: 28.35 gm AMI Plan - Labs Result Diagrams: 02/06/17 18:57 02/08/17 05:50
[2017-02-09] MEDS: PANTOPRAZOLE SODIUM 40 MG TABLET PO SCH (06:13)
[2017-02-09] MEDS: LEVOTHYROXINE SODIUM 125 MCG TABLET PO SCH (06:13)
[2017-02-09] MEDS: ACETAMINOPHEN 500 MG TABLET PO SCH ×3 (06:13→21:02)
[2017-02-09 07:12] LABS: ALB/GLOB RATIO 1.2 (1.1-1.8); ALBUMIN 3.5 gm/dL (3.5-5.0); ALKALINE PHOSPHATASE 112 U/L (38-126); ALT/SGPT 34 U/L (9-52); ANION GAP 7.2 (7-16); AST/SGOT 19 U/L (14-36); BILIRUBIN,TOTAL 0.71 mg/dL (0.2-1.3); BLOOD UREA NITROGEN 15 mg/dL (7-17); CARBON DIOXIDE 31.8 mmol/L (22-30); CREATININE 0.6 mg/dL (0.52-1.04); EST GLOMERULAR FILTRATION RATE > 60 ml/min; GLUCOSE,RANDOM 94 mg/dL (70-110); TOTAL PROTEIN 6.4 gm/dL (6.3-8.2)
--- NOTE | 2017-02-09 07:23 | RADIOLOGY REPORT ---
EXAM: CHEST, SINGLE VIEW HISTORY: FALL. TECHNIQUE: A single supine view of the chest was performed. FINDINGS: Postop sternotomy wires. Calcification of the mitral valve. The heart size is normal. The lung crenshaw are clear. No rib fracture deformity. IMPRESSION: NO ACUTE PULMONARY DISEASE PROCESS. JOB NUMBER: [id number] [facility]
--- NOTE | 2017-02-09 07:29 | CT SCAN REPORT ---
EXAM: CT OF THE BRAIN WITHOUT CONTRAST HISTORY: FALL. TECHNIQUE: Sequential axial images were obtained from the foramen magnum to the vertex without contrast administration. FINDINGS: There is age appropriate cortical atrophy with periventricular small vessel ischemic change. No large territorial infarct, hemorrhage, mass effect, or midline shift. There is mild extracranial vascular calcification. No extraaxial fluid collection. The orbits, paranasal sinuses, and mastoid air cells are normal. No depressed skull fracture. IMPRESSION: 1. NO ACUTE INTRACRANIAL ABNORMALITY IS APPRECIATED. 2. AGE APPROPRIATE CORTICAL ATROPHY WITH PERIVENTRICULAR SMALL VESSEL ISCHEMIA. [facility] [id number] [facility]
--- NOTE | 2017-02-09 07:31 | RADIOLOGY REPORT ---
EXAM: BILATERAL HIPS HISTORY: PAIN. TECHNIQUE: A single AP view of the pelvis and AP and frog leg lateral views of both hip joints were performed. FINDINGS: The patient is status post bilateral hip prosthesis placement. No evidence of fracture or dislocation. There is a healed fracture deformity of the right inferior pubic ramus. IMPRESSION: 1. BILATERAL HIP PROSTHESES ARE IN PLACE. NO EVIDENCE OF FRACTURE OR DISLOCATION. 2. HEALED FRACTURE DEFORMITY OF THE RIGHT INFERIOR PUBIC RAMUS. [facility]BER: [id number] [facility]
--- NOTE | 2017-02-09 07:34 | CT SCAN REPORT ---
EXAM: CT OF THE CERVICAL SPINE WITHOUT CONTRAST HISTORY: NECK PAIN. TECHNIQUE: Sequential axial images were obtained through the cervical spine without intravenous contrast administration. Sagittal and coronal reformatted images were performed. FINDINGS: There is no evidence of fracture, subluxation, or perched facet. There is multilevel degenerative change. The lateral masses are well aligned. The visualized lung apices are normal. IMPRESSION: MULTILEVEL DEGENERATIVE CHANGE. NO EVIDENCE OF FRACTURE, SUBLUXATION, OR PERCHED FACT. JOB [facility]BER: [id number] [facility]
[2017-02-09] MEDS: CITALOPRAM 20 MG TABLET PO SCH (09:57)
[2017-02-09] MEDS: MULTIVITAMINS/MINERALS TABLET PO SCH (09:57)
[2017-02-09] MEDS: VALSARTAN 80 MG TAB PO SCH (09:57)
[2017-02-09] MEDS: CALCIUM CARB/VITAMIN D 500MG/200IU PO SCH (09:57)
[2017-02-09] MEDS: SOTALOL HCL 80 MG TABLET PO SCH ×2 (09:57→21:04)
--- NOTE | 2017-02-09 09:57 | Discharge Summary ---
Providers Discharge Summary Date: 02/09/17 Date of admission: 02/06/17 23:08 Expected Date of Discharge: 02/10/17 Attending physician: SINAN OROZCO Physical Exam - Vital Signs Vital Signs: Vital Signs - Last 24 Hrs Temp Pulse Resp BP BP Pulse Ox 02/09/17 08:25 20 02/09/17 08:20 98.7 F 138/76 02/09/17 03:09 98.7 F 64 12 138/76 96 - General General Appearance: Alert, No acute distress Limitations: Altered mental status (chronically demented) - Head Head exam: Normal inspection - Eye Eye exam: Normal appearance, PERRL Pupils: Normal accommodation - ENT ENT exam: Normal exam, Mucous membranes moist, Normal external ear exam, Normal orophraynx, TM's normal bilaterally Ear exam: Normal external inspection. negative: External canal tenderness Nasal Exam: Normal inspection. negative: Discharge, Sinus tenderness Mouth exam: Normal external inspection, Tongue normal Teeth exam: Normal inspection. negative: Dental caries Throat exam: Normal inspection. negative: Tonsillar erythema, Tonsillar exudate - Neck Neck exam: Normal inspection, Full ROM, Other (arrived with C collar in place). negative: Tenderness - Respiratory Respiratory exam: Normal lung sounds bilaterally. negative: Respiratory distress - Cardiovascular Cardiovascular Exam: Regular rate, Normal rhythm, Normal heart sounds, Systolic murmur Peripheral Pulses: 3+: Dorsalis Pedis (R), Dorsalis Pedis (L) - GI/Abdominal GI/Abdominal exam: Soft, Normal bowel sounds. negative: Tenderness - Rectal Rectal exam: Deferred - exam: Deferred - Extremities Extremities exam: Normal inspection (no leg length discrepency), Full ROM, Normal capillary refill, Other. negative: Tenderness - Back Back exam: Reports: Normal inspection, Full ROM. Denies: Muscle spasm, Rash noted, Tenderness - Neurological Neurological exam: Alert, CN II-XII intact, Reflexes normal, Other (nonverbal. Sensation grossly intact BLE) - Psychiatric Psychiatric exam: Normal affect, Normal mood - Skin Skin exam: Dry, Intact, Normal color, Warm Hospitalization - Hospitalization Admission Diagnosis: Fall; inferior ramus fracture; dementia; electrolyte imbalance; intermittent a. fib - Problem List/Discharge Diagnosis (1) Electrolyte imbalance Current Visit: Yes Status: Acute Base Code: E87.8 - OTH DISORDERS OF ELECTROLYTE AND FLUID BALANCE, NEC Comment: 02/09- Hyponatremia noted on admission labs. Na 128->133 after initiating fluid restriction to 1800ml. -patient has history of this in past and was hospitalized on 04/2016 for same. At that time HCTZ blood pressure medication was stopped. - continue 1800ml/24 hour fluid restriction - will need to be followed up at childcare provider care facility (2) Adult hypothyroidism Current Visit: Yes Status: Acute Base Code: E03.9 - HYPOTHYROIDISM, UNSPECIFIED Comment: 02/09- Hx chronic hypothyroidism. TSH on 02/08 = 11.06 - increase synthroid to 125mcg QD, will need recheck in 6 weeks (3) Fall as cause of accidental injury at home as place of occurrence Current Visit: Yes Status: Acute Base Code: R29.6 - REPEATED FALLS; Y92.009 - UNSP PLACE IN UNSP NON-INSTITUT (PRIVATE) RESIDENCE PLACE Comment: 02/09- will get PT/OT eval today and has childcare provider placement at [facility]. Doing well with ambulation at present. Will schedule tylenol 1000mg TID for pain control - Hospitalization Course Hospital Course: 81 y/o demented female with CC fall admitted for right inferior ramus fracture, hyponatremia. PMX includes: dementia, a-fib, HTN, hypothyroidism, arthritis PSH: septomyectomy History given by - Patient mental status is at baseline, she is alert but non-verbal. Prior to admit patient fell at home while trying to ambulate with walker. Hit the side of a piece of furniture with the right side of her head and fell. Denies any LOC. Believes she lost her balance. Four weeks ago she fell and injured her right hip, no fracture, and subsequently went to a local rehab center for therapy and respite and returned home 02/03/17. has been her primary animal care worker. reports his current role as primary caregiver has been increasingly difficult to manage and has been working on arranging long term care placement for her for 01/06 care. He reports her current mental state is at baseline for her. While in the ED VS: T 98.1, P 74, BP108/66, RR 16, SPO2 96% RA. WBC 9.2, Plt 486 , Na 128, K 3.1, alk phos 161, tox screen negative, EKG NSR, RBBB, LAFB, LVH. Cervical CT negative for acute fracture, hip and pelvis x-ray + right pubic ramus fx, head CT negative for acute process, CXR negative for acute process 02/07- observed ambulating from BR with walker, wincing and whimpering. Is non- verbal. at bedside. Per 's report she ambulates independently with walker at home with little assist, requires 24/7 assist with ADL and food prep/medication management due to cognitive impairment. Was diagnosed with dementia about 4 years ago. states she has been accepted as a patient at [facility] and was planning on admission to the facility on Thursday. 02/08- Laying comfortably in the bed. Patient has dementia, is non-verbal. Per nursing report is wincing and whimpering less with ambulation. reports she seems more alert than she has in the last several days. Sleeping less. 02/09- Patient doing well, back to baseline per . Electrolytes significantly improved with fluid restriction and supplementation. Will obtain PT/OT referral today and plan to discharge to [facility] PCP Dr. Gonsalez Abnormal Labs: Abnormal Lab Results 02/07/17 02/08/17 02/09/17 Range/Units 12:50 05:50 06:00 Sodium 132 L 133 L (136-145) mmol/L Chloride 95 L 94 L (98-107) mmol/L Carbon Dioxide 31.2 H 31.8 H (22-30) mmol/L Anion Gap 5.8 L (7-16) BUN 20 H (7-17) mg/dL TSH 11.60 H (0.465-4.68) uIU/ml Condition at Discharge: (2) Stable Discharge Medications - Discharge Medications Prescriptions: Levothyroxine Sodium [Synthroid] 125 mcg PO DAILYTHY #30 tablet Home Medications: Ambulatory Orders Calcium Citrate/Vitamin D3 [Calcium Citrate - Vit D Tablet] 1 each PO DAILY [Last Taken 02/06/17] Multivit-Min/FA/Lycopene/Lut [Centrum Silver Tablet] 1 each PO DAILY 04/24/15 [ Last Taken 02/06/17] [place]-3/Dha/Epa/Fish Oil [Fish Oil Dr 500 mg Softgel] 300 mg PO TID 04/24/15 [ Last Taken 02/06/17] Omeprazole [Prilosec] 20 mg PO DAILY 04/24/15 [Last Taken 02/06/17] Sotalol HCl [Sotalol] 80 mg PO BID 04/24/15 [Last Taken 02/06/17] Citalopram Hydrobromide [Citalopram HBr] 20 mg PO DAILY 01/17/17 [Last Taken ] Valsartan 80 mg PO DAILY 02/07/17 [Last Taken Unknown] Acetaminophen [Tylenol 500Mg Tab] 1,000 mg PO Q8H #90 tablet 02/09/17 [Last Taken Unknown] Levothyroxine Sodium [Synthroid] 125 mcg PO DAILYTHY #30 tablet 02/09/17 [Last Taken Unknown] Magnesium Hydroxide/Al Hydrox [Maalox] 30 ml PO Q4H PRN #0 oral.susp 02/09/17 [ Last Taken Unknown] Valsartan [Diovan] 80 mg PO DAILY tablet 02/09/17 [Last Taken Unknown] Zinc Oxide [Desitin] 28.35 gm TOP BID PRN #0 tube 02/09/17 [Last Taken Unknown] Discharge Plan - Discharge Instructions Activity at Discharge: Increase Activity as Tolerated Diet at Discharge: Regular Diet Additional Instructions: - Outpatient TSH in 6 weeks. - We increased dose from Synthroid 100mcg to 125mg on 02/08.
--- NOTE | 2017-02-09 10:39 | Rehab Evaluation ---
Patient Information - Patient Information Diagnosis: frequent falls,electrolyte imbalance, dementia Ordered Treatment: PT Evaluate and Treat Status: Initial Evaluation History: Detail (The patient presented in ED 02/06 after she fell while ambulating and hit her head on a piece of furniture. 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) PMH - Neuro Hx Neurological Disorders Yes Hx Dementia Yes Hx Dizziness Yes PMH - GI Hx Gastrointestinal Disorders No PMH - Hx Genitourinary Disorders No Comment: incontinent of bowel and bladder PMH - Endocrine Hx Endocrine Disorders Yes Hx Thyroid Disease Yes: hypothyroid PMH - Musculoskeletal Hx Musculoskeletal Disorders Yes Hx Arthritis Yes: Generalized PMH - Psych Hx Psychiatric Problems Yes Hx Anxiety Yes Hx Depression Yes PMH - Hematology/Oncology Hx Hematology/Oncology Yes Disorders Hx Blood Transfusion Reaction No Premorbid Status: Detail (The patient per husbands report was ambulating with 2 wheeled walker and required assistance with all ADL's. The patient was continuing to fall frequently.) Social History: Detail (The patient lives with spouse and had returned from a 19 day Rehab stay on 02-03-17. The patient's spouse is seeking intermediate care due to amount of assistance patient has required at home.) Precautions: [place], Fall - Time With Patient Treatment Procedures: Detail (Initial Evaluation) Subjective Information - Subjective Information Per Patient (The patient is nonverbal, communicating with perservation ie: "really" to commands and repeating words said to her. The patient did not complain of pain but held her head frequently. The patient's and daughter were present for the evaluation.) Objective Data - Mental Status Patient Orientation: Person (The patient responded to her name and followed simple commands inconsisently. The patient became agitated at times pulling covers back over herself and refusing to participate in Rehab Eval.) - ROM Other (UE and LE AROM were not assessed due to cognition, however AROM was within functional limits.) - Strength/Tone Other (The patient's strength was not fully assessed but is functional.) - Bed Mobility Independent (The patient acheived supine to and from sit independently.) - Transfers Needs Assist (Not assessed secondary to patient refused activity.) - Balance Balance Sitting: Good (The patient was able to sit without support while attempting to put her pants on.) - Gait Detail (The patient refused ambulation during Rehab Evaluation, however the patient has been ambulating to bathroom with wheeled walker with nursing staff.) Therapy Assessment - Therapy Assessment Detail (The patient refused to get out of bed during Rehab Evaluation on 2 occasions. The patient did sit on the edge of the bed , put on pants with assist of OT and laid back down. Due to the patient's cognitive status and refusal to participate, the patient is a questionable Rehab candidate. The patient may participate in a more structured environment where activities are kept functional such as a memory care unit.) Problem List - Problem List Physical Therapy Problem List: Detail (1) Cognitive Status 2) Decreased ability to complete sustained physical activity) Goals - Goals Physical Therapy Goals: Due to cognitive status, patient is refusing PT activity at this time. Current Goals included encouraging the patient to ambulate with nursing staff to bathroom and ambulate to a chair and sit for all meals. Prognosis - Prognosis Poor (The patient is not a Rehab candidate at this time. Placement in a terminal press operator facility with a memory care unit is recommended.) Plan - Plan Physical Therapy Plan: The patient's status will be monitored. Due to cognitive status the patient is not a inpatient Rehab candidate at this time.
--- NOTE | 2017-02-09 13:04 | Rehab Evaluation ---
Patient Information - Patient Information Diagnosis: frequent falls,electrolyte imbalance, dementia, inferior ramus fracture Ordered Treatment: OT Evaluate and Treat Status: Initial Evaluation Surgery: No History: Detail (The patient presented in ED 02/06 after she fell while ambulating and hit her head on a piece of furniture. 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) PMH - Neuro Hx Neurological Disorders Yes Hx Dementia Yes Hx Dizziness Yes PMH - GI Hx Gastrointestinal Disorders No PMH - Hx Genitourinary Disorders No Comment: incontinent of bowel and bladder PMH - Endocrine Hx Endocrine Disorders Yes Hx Thyroid Disease Yes: hypothyroid PMH - Musculoskeletal Hx Musculoskeletal Disorders Yes Hx Arthritis Yes: Generalized PMH - Psych Hx Psychiatric Problems Yes Hx Anxiety Yes Hx Depression Yes PMH - Hematology/Oncology Hx Hematology/Oncology Yes Disorders Hx Blood Transfusion Reaction No Premorbid Status: Detail (The patient per husbands report was ambulating with 2 wheeled walker. Prior to recent hospitalization, spouse reports pt was Ind with self care and light meal prep. Since then she has required assistance with all ADL's. The patient was continuing to fall frequently.) Social History: Detail (The patient lives with spouse and had returned from a 19 day Rehab stay on 02-03-17. The patient's spouse is seeking java golden gate developer care due to amount of assistance patient has required at home.) Precautions: [place], Fall, Other (Impaired cognition/communication) - Time With Patient Total Time Spent With Patient (Min): 35 Treatment Procedures: Detail (OT eval moderate complexity) Subjective Information - Subjective Information Per Patient, Other (Per spouse) Objective Data - Pain Pain Present: Unable to Respond (Pt unable to verbalize pain although she was holding her head intermittently and appeared to be in pain.) - Mental Status Patient Orientation: Person (Pt responds to name, unable to verbalize appropriately and responds "really" to most questions. She was unable to follow verbal commands.) - Visual Perception Appears within normal limits for therapeutic activities - ROM Other (Unable to formally assess due to impaired cognition. Appears functional per observation.) - Strength/Tone Other (Unable to formally assess due to impaired cognition. Per observation mo UE strength is functional.) - Coordination Appears within normal limits for therapeutic activities - Bed Mobility Independent (Ind with supine to sit and sit to supine.) - Transfers Needs Assist (Unable to formally assess as pt refused to get into chair.) - Balance Balance Sitting: Good - Sensation Intact (Intact per observation.) - Gait Detail (Unable to assess.) - ADL's/IADL's Detail (Pt required max assist to start pants over feet but was able to bridge in supine and pull pants over hips. Due to impaired cognition ADLs were not able to be formally assessed.) Therapy Assessment - Therapy Assessment Detail (Pt presents with significantly impaired cognition and communication which limited her participation in the therapy evaluation. Per observation she has functional UE strength and ROM.) Problem List - Problem List Physical Therapy Problem List: Detail (1) Cognitive Status 2) Decreased ability to complete sustained physical activity) Occupational Therapy Problem List: Detail (1. Impaired cognition limiting functional self cares.) Goals - Goals Physical Therapy Goals: Due to cognitive status, patient is refusing PT activity at this time. Current Goals included encouraging the patient to ambulate with nursing staff to bathroom and ambulate to a chair and sit for all meals. Occupational Therapy Goals: 1. Maximize patients cognitive status to improve functional independence with self care activities including toileting, showering , feeding. Prognosis - Prognosis Moderate Plan - Plan Physical Therapy Plan: The patient's status will be monitored. Due to cognitive status the patient is not a inpatient Rehab candidate at this time. Occupational Therapy Plan: OT will continue to assess patients functional status within cognitive limitations. She would benefit from structured environment and will need 24 hour assistance at this point.
[2017-02-10] MEDS: ACETAMINOPHEN 500 MG TABLET PO SCH (04:52)
[2017-02-10 06:44] LABS: BASO % 1.8 % (0-6); EOS % 3.8 % (0-6); GRAN % 42.8 % (47-80); HEMATOCRIT 37.8 % (35.0-47.0); LYMPH % 40.2 % (16-45); MEAN CELL VOLUME 93.8 fl (81-97); MEAN CORPUSCULAR HEMOGLOBIN 32.3 pg (27-33); MEAN CORPUSCULAR HGB CONC 34.4 g/dl (32-36); MEAN PLATELET VOLUME 9.1 fl (7.4-10.4); MONO % 11.4 % (0-9); PLATELET COUNT 352 K/uL (130-400); RED BLOOD COUNT 4.03 M/uL (3.80-5.40); RED CELL DISTRIBUTION WIDTH 12.3 % (11.5-14.5)
[2017-02-10] MEDS: LEVOTHYROXINE SODIUM 125 MCG TABLET PO SCH (06:50)
[2017-02-10] MEDS: PANTOPRAZOLE SODIUM 40 MG TABLET PO SCH (06:50)
[2017-02-10 06:59] LABS: ALB/GLOB RATIO 1.1 (1.1-1.8); ALBUMIN 3.3 gm/dL (3.5-5.0); ALKALINE PHOSPHATASE 108 U/L (38-126); ALT/SGPT 28 U/L (9-52); ANION GAP 5.2 (7-16); AST/SGOT 23 U/L (14-36); BILIRUBIN,TOTAL 0.76 mg/dL (0.2-1.3); BLOOD UREA NITROGEN 14 mg/dL (7-17); CARBON DIOXIDE 30.8 mmol/L (22-30); CREATININE 0.5 mg/dL (0.52-1.04); EST GLOMERULAR FILTRATION RATE > 60 ml/min; GLUCOSE,RANDOM 94 mg/dL (70-110); TOTAL PROTEIN 6.3 gm/dL (6.3-8.2)
[2017-02-10] MEDS: CALCIUM CARB/VITAMIN D 500MG/200IU PO SCH (09:00)
[2017-02-10] MEDS: SOTALOL HCL 80 MG TABLET PO SCH (09:01)
[2017-02-10] MEDS: MULTIVITAMINS/MINERALS TABLET PO SCH (09:01)
[2017-02-10] MEDS: VALSARTAN 80 MG TAB PO SCH (09:01)
[2017-02-10] MEDS: CITALOPRAM 20 MG TABLET PO SCH (09:01)
== END 2017-02-10 11:00 | DRG 536 ==
LOC: ER 18:21 → OBSVTOIN 23:08 → MEDSURG 23:08 → INTOOBSV 23:08 → OBSVTOIN 02-07 12:46
PROVIDERS: ADMIT Family Medicine; ATTEND Family Medicine
DX: S32.591A Other specified fracture of right pubis, initial encounter for closed fracture (principal); E87.8 Other disorders of electrolyte and fluid balance, not elsewhere classified; E03.9 Hypothyroidism, unspecified; Z78.9 Other specified health status; I48.91 Unspecified atrial fibrillation; I10 Essential (primary) hypertension; F03.90 Unspecified dementia, unspecified severity, without behavioral disturbance, psychotic disturbance, mood disturbance, and anxiety
CPT/HCPCS: 99285 ×2; 82140; 85025; 85730; 85610; 80076; 80048; 81003; 80305; 71010; 73521; 72125; 70450; 93005; 93010; G0378; 80053; 84443; 97166; 99223; 99233; 99239